=== PATIENT | male | born 1950 | race Caucasian/White ===

== ENCOUNTER 2019-08-05 07:24 | Inpatient (IN) ==
--- NOTE | 2019-07-10 14:19 | PAT Medication Instructions ---
Medication Instructions Date of Service July 10, 2019 Home Medications Medications atorvastatin 80 mg PO QAM metoprolol succinate 12.5 mg PO QAM paroxetine HCl 20 mg PO QAM aspirin 325 mg PO QAM ASK your prescriber and surgeon aspirin 325 mg PO QAM Take morning of surgery With a small sip of water, OTHERWISE NOTHING TO EAT OR DRINK AFTER MIDNIGHT: atorvastatin 80 mg PO QAM metoprolol succinate 12.5 mg PO QAM paroxetine HCl 20 mg PO QAM Other Notes If you have any questions please call us at [phone] or [phone] or [phone] or [phone]
--- NOTE | 2019-07-11 10:56 | Anesthesiology Consultation ---
Date of Service July 11, 2019 Assessment & Plan (1) Encounter for pre-operative examination: PCP Clearance 07/16/19 = "recent A1c level 6.9% ... We discussed diagnosis of type 2 diabetes ...[patient] plans to improve diet...f/u in 2 months...patient is cleared for surgery pending cardiac clearance." Cardiology clearance 07/25/19 = "blood pressure notably elevated on preadmission testing as well as when evaluated by PCP and here today. This is likely in part associated with the interim weight gain, up 18 pounds from last evaluation in this office. Patient quires additional blood pressure control prior to surgery. Options of management discussed with the patient as well as supervising cad application support specialist. He has had past issues with fluid retention while on amlodipine, hyperkalemia with past use of lisinopril; I am hesitant to add a thiazide diuretic preoperatively. At this time is felt that it would be best to add amlodipine 5 mg/day for additional blood pressure control, utilize NSAID medication likely only for short period of time. Following surgery, would consider alternative such as HCTZ then retrial of lisinopril. Resting echoca rdiography requested to assess LV systolic function and current valvular status, testing to be done prior to surgery... I have also been asked by preadmission testing to comment on the patient's atherosclerotic plaque in the proximal descending aorta; I do not believe this requires further evaluation/intervention prior to elective knee surgery." Echo 07/25/19 The examination is adequate to evaluate the referral indication. There is sinus bradycardia during examination. LV cavity size is normal. The LV wall thickness is moderately increased (concentric). The basal posterior wall is hypokinetic. The base and mid inferior wall is hypokinetic. The regional left ventricular wall motion is otherwise normal. EF 55 to 59%. Grade 1 diastolic dysfunction of left ventricle. There is an aortic valve bioprosthetic present. AV prosthesis leaflets appear mobile. Valve gradients are appropriate for the size and structure and a reduced comparison to prior examination. Significant AV prosthesis regurgitation is absent. The aortic root and proximal ascending aorta are normal sized. Cardio 07/25: "Echo looks good. Patient okay for surgery once blood pressure is adequately controlled." BP Recheck 07/31/19 = BP 154/75 Chart Review Chart Review: Acceptable Risk for Surgery and Patient seen in Pre Admission Testing Teaching & Discussion Instructed NPO after midnight before surgery, except medications with 15 cc of water. Medication instructions provided according to the PAT guidelines. History Surgery Operation Date: 08/05/19 09:55 Proposed Procedures p Left Knee Revision Patella with Possible Tabecular Knee - Chuck Enamorado DO Height/Weight Height: 5 ft 7 in Weight: 118.8 kg Allergies Allergy/AdvReac Type Severity Reaction Status Date / Time No Known Drug Allergies Allergy Unknown NONE Verified 07/09/19 15:35 Medications Home Medications Medication Instructions Recorded Confirmed Last Taken atorvastatin 80 mg PO QAM 07/12/18 07/09/19 Unknown metoprolol succinate 12.5 mg PO QAM 07/12/18 07/09/19 Unknown paroxetine HCl 20 mg PO QAM 07/12/18 07/09/19 Unknown aspirin 325 mg PO QAM 07/09/19 07/09/19 Unknown Past Medical History Medical History CAD (coronary artery disease) s/p inferior wall OR; PCI to the proximal and distal RCA in 2001 SHAQUILLE (generalized anxiety disorder) GERD (gastroesophageal reflux disease) hx - no problems currently Heart disease (Resolved) History of aortic valve stenosis s/p AVR with bioprosthetic valve 06/2018 HLD (hyperlipidemia) Hypertension (Chronic) OR (myocardial infarction) (Chronic) 2001 Osteoarthritis Pericardial effusion without cardiac tamponade s/p aortic valve replacement 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 Exercise / Class Metabolic Activity II 4-5 Yardwork/Stairs/Walk up hill (Denies CP or SOB wih 1 FOS, does daily.) Past Family History Family History Father , in 40s Encephalitis Mother Alzheimer disease Other Coronary heart disease No family history of adverse response to anesthesia Past Surgical History Surgical History History of appendectomy History of cardiac cath 2001 with PCI History of cholecystectomy History of colonoscopy History of esophagogastroduodenoscopy (EGD) History of heart artery stent 2001 - [facility] History of tonsillectomy History of total bilateral knee replacement History of vasectomy S/P AVR (aortic valve replacement) 06/24/[place] [facility] [place] Medley bioprosthetic S/P transesophageal echocardiogram (LATOYA) Past Anesthesia History No Hx of Anesthesia Complications and No Family Hx of Anesthesia Complications History of PONV No Hx of PONV and Hx of Motion Sickness Social History Smoking Status: Former smoker tobacco type: cigarettes Smoking cigarettes per day: ~3 ppd Do You Dip or Chew Tobacco: No Smoking End Date: 06/2001 Hx Alcohol Use: Yes Alcohol type: beer alcohol intake frequency: a few times a week Hx Substance Use: No substance use type: does not use Review of Systems Pt denies any recent chest pain, shortness of breath, palpitations, cough, fever or URI. Physical Exam Vital Signs BP: 156/86 (pt to see cardiology for pre op clearance) P: 54bpm SPO2: 96% RA T: 98.3 F R: 16 ENMT Mouth: + dentures (full upper) and + macroglossia; no chipped teeth and no loose teeth Thyromental Distance: > or= 3.5 Finger Breadths (4) Mallampati Class: II Neck + short neck; neck extension not limited Respiratory normal respiratory effort Auscultation: lungs clear to auscultation bilaterally Cardiovascular Rate/Rhythm: regular rhythm and + bradycardic Heart Sounds: + murmur (II/ RSB) Testing Laboratory Results 07/11/19 11:19 07/11/19 11:19 PT 9.8 Seconds (9.0-12.0) 07/11/19 11:19 INR 1.0 (0.9-1.1) 07/11/19 11:19 APTT 25.6 Seconds (21.0-31.0) 07/11/19 11:19 Hemoglobin A1c 6.9 % (4.5-5.6) H 07/11/19 11:19 Urine Color Dark Yellow 07/11/19 11:19 Urine Appearance Clear (Clear) 07/11/19 11:19 Urine pH 7.5 (4.5-7.5) 07/11/19 11:19 Ur Specific [place] 1.026 (1.000-1.030) 07/11/19 11:19 Urine Protein 2+ (Negative) H 07/11/19 11:19 Urine Glucose (UA) Negative (Negative) 07/11/19 11:19 Urine Ketones Negative (Negative) 07/11/19 11:19 Urine Nitrite Negative (Negative) 07/11/19 11:19 Ur Leukocyte Esterase Negative (Negative) 07/11/19 11:19 Urine WBC (Auto) 1-5 /hpf (0-5) 07/11/19 11:19 Urine RBC (Auto) 5-10 /hpf (0-4) H 07/11/19 11:19 U Hyaline Cast (Auto) 0 /lpf (0-5) 07/11/19 11:19 U Epithel Cells (Auto) 5-10 /lpf (0-5) H 07/11/19 11:19 Urine Bacteria (Auto) Negative (Negative) 07/11/19 11:19 Blood Type A Positive 07/11/19 11:19 Antibody Screen NEGATIVE 07/11/19 11:19 07/11/19 11:19 Urine Culture - Final Urine,Clean Catch No growth - less than 1,000 colonies/mL. Electrocardiogram Date: 07/11/19 Findings: + SB @ (54bpm with sinus arrhythmia) Cannot rule out anterior infarct, age undetermined. Cannot rule out inferior infarct. ST elevation, consider inferior injury pattern. Compared with EKG of 07/14/2018, premature atrial complexes are no longer present, [place] interval has decreased, nonspecific T wave abnormality no longer evident in inferior leads, ST elevation is now more evident in inferior leads. *Patient denied any chest pain/pressure, dyspnea or nausea at [facility]. Anterior and inferior infarcts noted on prior EKGs from [facility] (scanned to chart). Chest X-Ray Date: 07/11/19 FINDINGS: Median sternotomy wires intact. Atherosclerosis of the aortic arch. Cardiac silhouette mildly enlarged. Lungs and pleural spaces clear apart from a possible loculated effusion, pleural thickening, or extrapleural fat in the posterior costophrenic sulcus potentially on the left. Degenerative changes of the thoracic spine. Post traumatic deformity of the right clavicle. Upper abdomen normal. IMPRESSION: 1. No acute cardiopulmonary disease. 2. Possible loculated effusion, pleural thickening, or extrapleural fat in the posterior costophrenic sulcus potentially on the left. This may represent sequela of prior effusion from last June. *Reviewed by PCP at clearance appt Echocardiogram Date: 07/13/18 (LATOYA) EF: 60-65% There is a bioprosthetic aortic valve. Bioprosthetic leaflets are thin and move normally in limited views. No evidence of bioprosthetic aortic valve regurgitation. No Cardiac Catheterization Date: 05/30/18 Coronary angiography: Selective injections of the left coronary artery revealed the left main trunk to be widely patent. The left circumflex artery is small and consist principally of the AV groove. The left circumflex artery is patent. There is a large ramus branch from the LAD that supplies most of the lateral myocardium and is widely patent. The LAD continues down around the apex of the heart. The LAD system is widely patent. Selective injections of the right coronary artery reveal it to be hyperdominant with a very large PDA as well as posterior lateral branch supplying a lot of the area usually supplied by the left circumflex artery. There are stented sites within the right coronary artery which are patent. The remainder of the artery is also widely patent. Summary: The patient has aortic stenosis with patent coronary anatomy including the previous stent sites in the right coronary artery. The estimated left ventricular ejection fraction is around 50% with hypokinesis of the inferior and inferior posterior myocardium consistent with previous history of infarct. Recommendations: Surgical review of the data for possible aortic valve replacement. Other Testing Transthoracic echo 10/08/2018 Small loculated pericardial effusion adjacent to the right atrium. Cardiac tamponade is absent. EF is normal at 55 to 59%. The base posterior wall and basal inferior wall are hypokinetic.
--- NOTE | 2019-07-11 11:48 | XRay Report ---
XR chest Pre-admission PA/Lat CLINICAL HISTORY: 68 years-old Male presenting with preoperative assessment. TECHNIQUE: PA and lateral views of the chest were obtained. COMPARISON: 07/12/2018. FINDINGS: Median sternotomy wires intact. Atherosclerosis of the aortic arch. Cardiac silhouette mildly enlarge d. Lungs and pleural spaces clear apart from a possible loculated effusion, pleural thickening, or ex trapleural fat in the posterior costophrenic sulcus potentially on the left. Degenerative changes of the thoracic spine. Post traumatic deformity of the right clavicle. Upper abdomen normal. IMPRESSION: 1. No acute cardiopulmonary disease. 2. Possible loculated effusion, pleural thickening, or extrapleural fat in the posterior costophreni c sulcus potentially on the left. This may represent sequela of prior effusion from last June. ACT 112: Negative or not required by law. Electronically signed by: Benja Daniels M.D. 07/11/2019 11:46 AM
[2019-07-11 12:39] LABS: Basophils # (auto) 0.02 K/uL (0-0.2); Basophils % (auto) 0.3 %; Eosinophils % (auto) 4.1 %; Hematocrit (blood only) 40.9 % (42-52); Hemoglobin 13.6 g/dL (14.0-18.0); Immature Granulocytes # (auto) 0.02 K/uL (0.00-0.02); Immature Granulocytes % (auto) 0.3 %; Lymphocytes # (auto) 1.54 K/uL (1.2-3.4); Lymphocytes % (auto) 20.9 %; Mean Corpuscular Hemoglobin 30.5 pg (25-34); Mean Corpuscular Hgb Conc 33.3 g/dL (32-36); Mean Corpuscular Volume 91.7 fL (80-100); Mean Platelet Volume 10.5 fL (7.4-10.4); Monocytes # (auto) 0.39 K/uL (0.11-0.59); Monocytes % (auto) 5.3 %; Neutrophils # (auto) 5.11 K/uL (1.4-6.5); Neutrophils % (auto) 69.1 %; Platelet Count 195 K/uL (130-400); RDW Coefficient of Variation 13.5 % (11.5-14.5); RDW Standard Deviation 44.7 fL (36.4-46.3); Red Blood Count 4.46 M/uL (4.7-6.1); White Blood Count 7.38 K/uL (4.8-10.8)
[2019-07-11 12:42] LABS: Appearance Urine Clear (Clear); Bacteria Urine Automated Negative (Negative); Bilirubin Urine Negative (Negative); Blood Urine Negative (Negative); Cast Urine Automated 0 /lpf (0-5); Color Urine Dark Yellow; Glucose Urine UA Negative (Negative); Ketones Urine Negative (Negative); Leukocyte Esterase Urine Negative (Negative); Nitrite Urine Negative (Negative); Specific Gravity Urine 1.026 (1.000-1.030); Urobilinogen Urine Negative (Negative); pH Urine 7.5 (4.5-7.5)
[2019-07-11 12:43] LABS: Protein Urine 2+ (Negative)
[2019-07-11 12:44] LABS: Sulfosalicylic Acid Urine Positive (Negative)
[2019-07-11 12:51] LABS: Albumin Level 3.6 gm/dl (3.4-5.0); BUN Creatinine Ratio 19.8 (10-20); Calcium 8.9 mg/dl (8.5-10.1); Est GFR (African American) 95.6; Est GFR (Non-African American) 82.5; Potassium 4.3 mmol/L (3.5-5.1)
[2019-07-11 13:10] LABS: Partial Thromboplastin Ratio 0.9; Partial Thromboplastin Time 25.6 Seconds (21.0-31.0); Prothrombin Time 9.8 Seconds (9.0-12.0)
[2019-07-11 13:13] LABS: Estimated Average Glucose 151 mg/dl; Hemoglobin A1C 6.9 % (4.5-5.6)
--- NOTE | 2019-07-12 06:24 | Electrocardiogram Report ---
Test Reason : Blood Pressure : / mmHG Vent. Rate : 054 BPM Atrial Rate : 054 BPM P-R Int : 196 ms QRS Dur : 116 ms QT Int : 458 ms P-R-T Axes : 024 069 057 degrees QTc Int : 434 ms Sinus bradycardia with sinus arrhythmia Cannot rule out Anterior infarct , age undetermined Cannot rule out Inferior infarct ST elevation, consider inferior injury pattern Abnormal ECG When compared with ECG of 14-JUL-2018 07:06, Premature atrial complexes are no longer Present [place] interval has decreased Nonspecific T wave abnormality no longer evident in Inferior leads ST elevation is now more evident in inferior leads Confirmed by Miles Rhodes ([id number]) on 07/12/2019 6:23:57 AM Referred By: Chuck Enamorado Confirmed By:Miles Rhodes
--- NOTE | 2019-07-15 08:45 | History & Physical Report ---
Date of Service July 15, 2019 date of surgery: 08-05-19 Assessment & Plan (1) Painful total knee replacement, left: Further care discussed with patient and at this point in time has failed conservative measures and would like to proceed with a left knee patellar revision with poss trabecular metal component. Plan on discharge will be home with home health physical therapy. DVT prophalaxis with TEDs, SCDs and will also place on aspirin 81 mg p.o. b.i.d. for a month postop. Patient will have follow up appointment in our office two weeks post op for staple/suture removal and re- evaluation. Patient otherwise has no other questions or concerns. Patient with h/o CAD will need cardiac clearance. History of Present Illness Chief Complaint: left knee pain Primary Care Provider: Gen Mccartney MD Mr Matthews is a 68 year old male who complains of left knee pain, presents for pre-op evaluation prior to Left knee revision patella with possible trabecular metal patella [facility] 08/05/[facility]. he complains of pain and giving out of the left knee. Currently the patient states that the symptoms are moderate- severe. The pain is described as aching, sharp and throbbing. The symptoms are aggravated by ascending stairs, descending stairs, daily activities, driving, first steps while awake, kneeling, movement, repetitive activities, sleeping in any position, squatting, standing, walking and weight bearing. In addition to knee pain he is also experiencing decreased mobility, difficulty bending, difficulty going to sleep, instability, limping, nighttime awakening, pain, stiffness, tenderness and weakness. On 03/01/15 Dr. Keating performed left knee TKA. X-ray shows Loose and displaced patellar component left total knee tibia and femur both in excellent position no loosening noted Allergies Allergy/AdvReac Type Severity Reaction Status Date / Time No Known Drug Allergies Allergy Unknown NONE Verified 07/09/19 15:35 Home Medications Home Medications Medication Instructions Recorded Confirmed Type atorvastatin 80 mg PO QAM 07/12/18 07/09/19 History metoprolol succinate 12.5 mg PO QAM 07/12/18 07/09/19 History paroxetine HCl 20 mg PO QAM 07/12/18 07/09/19 History aspirin 325 mg PO QAM 07/09/19 07/09/19 History Past Med/Surg History Medical History CAD (coronary artery disease) s/p inferior wall [place]; PCI to the proximal and distal RCA in 2001 [place]QU[place] (generalized anxiety disorder) GERD (gastroesophageal reflux disease) hx - no problems currently Heart disease (Resolved) History of aortic valve stenosis s/p AVR with bioprosthetic valve 06/2018 HLD (hyperlipidemia) Hypertension (Chronic) [place] (myocardial infarction) (Chronic) 2001 Osteoarthritis Pericardial effusion without cardiac tamponade s/p aortic valve replacement 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 Surgical History History of appendectomy History of cardiac cath [address] Monreal History of cholecystectomy History of colonoscopy History of esophagogastroduodenoscopy (EGD) History of heart artery stent 2001 - [facility] History of tonsillectomy History of total bilateral knee replacement History of vasectomy S/P AVR (aortic valve replacement) [place] [facility] [place] Med[place] biop[place] S/P transesophageal echocardiogram (LATOYA) Family History Father , in 40s Encephalitis Mother Alzheimer disease Other Coronary heart disease No family history of adverse response to anesthesia Social History Preferred Language: Afghan Communication Ability: Effective Accountant Controller Required: No Beliefs That Will Affect Care: None marital status: Current Living Situation: Spouse Other Information That Helps Us Care for You: No Feels Safe at Home: Yes Safety Concerns: Feels Safe At This Time Smoking Status: Former smoker Tobacco Type: cigarettes ; Cigarettes Per Day: ~3 ppd ; Do You Dip or Chew Tobacco: No ; Smoking End Date: 06/2001 ; Second Hand Exposure: Yes (hx) ; Tobacco Cessation Education Requested by Patient: No Hx Alcohol Use: Yes Alcohol type: beer Alcohol Intake Frequency Comment: socially on weekend 2-3 on sunday nights, 6-12 on sunday night Hx Substance Use: No Review of Systems Review of Systems: All systems reviewed & are unremarkable except as noted in HPI & below Constitutional: no fever, no chills and no sweats Respiratory: no cough and no dyspnea Cardiovascular: no chest pain, no dyspnea and no orthopnea Gastrointestinal: no abdominal pain, no nausea and no vomiting Musculoskeletal: as per Subjective / HPI Physical Exam 2 Physical Exam: Ht: 5ft 7in Wt: 118.8kg BP: 142/72 Pulse: 76 Constitutional: WD/WN, vitals as above no acute distress Respiratory: normal respiratory effort, lungs clear to auscultation no respiratory distress, no labored breathing and does not use accessory muscles Cardiovascular: RRR, no murmur, no edema Gastrointestinal (Abdomen): normal bowel sounds, soft, nontender, no hepatosplenomegaly Musculoskeletal: Left Knee Exam Ambulates with a limp, overall neutral alignment, well healed surgical incision. there is no atrophy warmth or ecchymosis noted, mild effusion, maximum tenderness anterior knee. positive patellar Apprehension , no crepitation with motion, valgus stress Negative, Varus stress Negative, no Extensor lag, Pain with Active range of motion, also passive painful ROM, Range of motion 0/3/115. No pain with active/passive ROM of ankle. Lower Extremity Strength normal. Lower Extremity Neuro-vascular is normal Results & Data Laboratory Results Laboratory Results WBC 7.38 K/uL (4.8-10.8) 07/11/19 11:19 RBC 4.46 M/uL (4.7-6.1) L 07/11/19 11:19 Hgb 13.6 g/dL (14.0-18.0) L 07/11/19 11:19 Hct 40.9 % (42-52) L 07/11/19 11:19 MCV 91.7 fL (80-100) 07/11/19 11:19 MCH 30.5 pg (25-34) 07/11/19 11:19 MCHC 33.3 g/dL (32-36) 07/11/19 11:19 RDW Std Deviation 44.7 fL (36.4-46.3) 07/11/19 11:19 RDW Coeff of Adi 13.5 % (11.5-14.5) 07/11/19 11:19 Plt Count 195 K/uL (130-400) 07/11/19 11:19 MPV 10.5 fL (7.4-10.4) H 07/11/19 11:19 Immature Gran % (Auto) 0.3 % 07/11/19 11:19 Neut % (Auto) 69.1 % 07/11/19 11:19 Lymph % (Auto) 20.9 % 07/11/19 11:19 [place] % (Auto) 5.3 % 07/11/19 11:19 Eos % (Auto) 4.1 % 07/11/19 11:19 Baso % (Auto) 0.3 % 07/11/19 11:19 Immature Gran # (Auto) 0.02 K/uL (0.00-0.02) 07/11/19 11:19 Neut # (Auto) 5.11 K/uL (1.4-6.5) 07/11/19 11:19 Lymph # (Auto) 1.54 K/uL (1.2-3.4) 07/11/19 11:19 [place] # (Auto) 0.39 K/uL (0.11-0.59) 07/11/19 11:19 Eos # (Auto) 0.30 K/uL (0-0.5) 07/11/19 11:19 Baso # (Auto) 0.02 K/uL (0-0.2) 07/11/19 11:19 PT 9.8 Seconds (9.0-12.0) 07/11/19 11:19 INR 1.0 (0.9-1.1) 07/11/19 11:19 APTT 25.6 Seconds (21.0-31.0) 07/11/19 11:19 PTT Ratio 0.9 07/11/19 11:19 Sodium 140 mmol/L (136-145) 07/11/19 11:19 Potassium 4.3 mmol/L (3.5-5.1) 07/11/19 11:19 Chloride 105 mmol/L (98-107) 07/11/19 11:19 Carbon Dioxide 31 mmol/L (21-32) 07/11/19 11:19 Anion Gap 4.0 (3-11) 07/11/19 11:19 BUN 19 mg/dl (7-18) H 07/11/19 11:19 Creatinine 0.95 mg/dl (0.6-1.4) 07/11/19 11:19 Est Cr Clr Drug Dosing 93.0 ml/min 07/11/19 11:19 Est GFR ( Amer) 95.6 07/11/19 11:19 Est GFR (Non-Af Amer) 82.5 07/11/19 11:19 BUN/Creatinine Ratio 19.8 (10-20) 07/11/19 11:19 Glucose 108 mg/dl (70-99) H 07/11/19 11:19 Estimat Average Glucose 151 mg/dl 07/11/19 11:19 Hemoglobin A1c 6.9 % (4.5-5.6) H 07/11/19 11:19 Calcium 8.9 mg/dl (8.5-10.1) 07/11/19 11:19 Albumin 3.6 gm/dl (3.4-5.0) 07/11/19 11:19 Urine Color Dark Yellow 07/11/19 11:19 Urine Appearance Clear (Clear) 07/11/19 11:19 Urine pH 7.5 (4.5-7.5) 07/11/19 11:19 Ur Specific [place] 1.026 (1.000-1.030) 07/11/19 11:19 Urine Protein 2+ (Negative) H 07/11/19 11:19 Urine Glucose (UA) Negative (Negative) 07/11/19 11:19 Urine Ketones Negative (Negative) 07/11/19 11:19 Urine Blood Negative (Negative) 07/11/19 11:19 Urine Nitrite Negative (Negative) 07/11/19 11:19 Urine Bilirubin Negative (Negative) 07/11/19 11:19 Urine Urobilinogen Negative (Negative) 07/11/19 11:19 Ur Leukocyte Esterase Negative (Negative) 07/11/19 11:19 Urine WBC (Auto) 1-5 /hpf (0-5) 07/11/19 11:19 Urine RBC (Auto) 5-10 /hpf (0-4) H 07/11/19 11:19 U Hyaline Cast (Auto) 0 /lpf (0-5) 07/11/19 11:19 U Epithel Cells (Auto) 5-10 /lpf (0-5) H 07/11/19 11:19 Urine Bacteria (Auto) Negative (Negative) 07/11/19 11:19 Blood Type A Positive 07/11/19 11:19 Antibody Screen NEGATIVE 07/11/19 11:19 Diagnostic Findings Left knee X-ray Loose and displaced patellar component left total knee tibia and femur both in excellent position no loosening noted
[~2019-08-05 07:24] MED LIST: ACETAMINOPHEN 500 MG TAB PO SCH; BUPIVACAINE 0.5 % 5 MG/1 ML PF 10ML VIAL ONE; BUPIVACAINE/EPINEPHRINE 0.25% 1:200,000 30 ML VIAL ONE; CEFAZOLIN 2000MG 2,000 MG/15 ML SYR IV SCH; CeleBREX 200 MG CAP PO SCH; FAMOTIDINE 20 MG TAB PO SCH; GABAPENTIN 300 MG CAP PO SCH; LR 500ML BOLUS, THEN 15ML/HR IV SCH; METOCLOPRAMIDE HCL 10 MG TABLET PO SCH; TRANEXAMIC ACID 1,000 MG **IV Intra-op IV SCH; TRANEXAMIC ACID 1,000 MG **IV Pre-op IV SCH; dexAMETHasone 4 MG TAB PO SCH
[2019-08-05] MEDS ORDERED: GLYCOPYRROLATE 0.2 MG/ML VIAL ONE (07:46)
[2019-08-05] MEDS ORDERED: LIDOCAINE HCL 2% 2 ML VIAL/AMP(20MG/ML) INFIL ONE (07:46)
[2019-08-05] MEDS ORDERED: KETAMINE HCL INJ 50 MG/ML 10 ML VIAL ONE (07:46)
[2019-08-05] MEDS ORDERED: MIDAZOLAM HCL 1 MG/ML 2ML VIAL ONE (07:46)
[2019-08-05] MEDS ORDERED: PROPOFOL IV EMULSION 10 MG/ML 20 ML VIAL IV ONE ×2 (07:46→08:41)
[2019-08-05] MEDS ORDERED: ONDANSETRON INJ 2 MG/ML 2 ML VIAL ONE (07:46)
--- NOTE | 2019-08-05 08:42 | History & Physical Bridge Note ---
Date of Service August 05, 2019 History & Physical Bridge Note I have examined the patient, reviewed the History & Physical and in the interval since the performance of the History & Physical I have noted the following changes of clinical significance: no changes noted
[2019-08-05] MEDS ORDERED: ONDANSETRON INJ 2 MG/ML 2 ML VIAL IV PRN ×2 (09:12→13:10)
[2019-08-05] MEDS ORDERED: fentaNYL citrate 100 MCG/2 ML VIAL IV PRN (09:12)
[2019-08-05] MEDS ORDERED: ePHEDrine sulfate 50 MG/ML AMP IV PRN (09:12)
[2019-08-05] MEDS ORDERED: ATROPINE SULFATE 0.1 MG/ML 10ML SYR IV PRN (09:12)
[2019-08-05] MEDS ORDERED: HYDROmorphone INJ 2 MG/ML SYR/VIAL IV PRN (09:12)
[2019-08-05] MEDS ORDERED: BACITRACIN INJ 50,000 UNIT VIAL ONE (09:35)
[2019-08-05] MEDS ORDERED: ePHEDrine sulfate 50 MG/ML SYR ONE (10:38)
--- NOTE | 2019-08-05 11:14 | Operative Report ---
Post Operative Report Pre & Post Diagnosis Operation Date: 08/05/19 09:55 Pre-Op Diagnosis: Painful Total Knee Replacement, Left Post-Op Diagnosis: Painful Total Knee Replacement, Left I identified the patient and participated in the time-out.: Yes Procedure Operation Date: 08/05/19 09:55 Actual Procedures p Left Knee Revision Patella with Poly Exchange of Left Knee(Left) with revision of patella to a size 35 cemented patella and a poly-change to a size 13 poly-- Chuck Enamorado DO Surgeon Chuck Enamorado DO Microbiology Professor MEI Juan Estimated Blood Loss 5 Findings Consistent with Post-Op Diagnosis Patient presents being seen evaluated after previously undergone total knee arthroplasties by Dr. Keating presents to the office with painful left total knee of sudden onset after doing some kneeling the x-rays revealed to be evidence of a free patellar component sitting in the suprapatellar pouch no other evidence of loosening sepsis or other abnormality was noted Specimens Tibial poly-patellar button bone Drains Medium bore Hemovac Anesthesia Type General Regional Complications none Disposition Accompanied Patient To Recovery: No Disposition: Recovery Room Indications Patient presents with a loose patellar component free-floating in the knee joint left knee status post previous total knee arthroplasty and having a traumatic event the above intraoperative findings noted at time of surgery Description of Procedure After incision of general anesthesia with spinal anesthesia the left lower extremity socially prepped draped in sterile fashion surgery type in a standard midline incision made a medial parapatellar incision was made synovectomy was performed the no evidence of infection was noted there was a free patellar component floating in the suprapatellar pouch which was removed the tibial poly- was noted to have laxity to it so for this reason it was removed and upsized to a size thirteen 5 x 6 the wound was irrigated with copious muscle sterile saline solution the patella was recut and a re-cemented with a #35 oval patellar button with excellent cement mantle the wound was irrigated patellar tracking was noted to be excellent medial parapatellar incision closed over medium bore Hemovac with #1 Vicryl subcu was closed 2-0 Vicryl skin was closed with skin clips sterile compressive dressing was placed patient taken recovery in stable condition present MEI Ren was necessary prepping draping retraction wound closure of deep fascia subcu and skin was necessary for the case I attest to the content of the Intraoperative Record and any orders documented therein. Any exceptions are noted below.
--- NOTE | 2019-08-05 12:07 | XRay Report ---
LEFT KNEE 2 VIEWS History: Left total knee arthroplasty. Degenerative arthritis. Postop. FINDINGS: The patient is status post a left total knee arthroplasty. The hardware is intact. No fract ure or dislocation. Surgical drains are in place. IMPRESSION: Left total knee arthroplasty. No evidence for hardware complication. ACT 112: Negative or not required by law. Electronically signed by: Castro Galvez M.D. 08/05/2019 12:06 PM
--- NOTE | 2019-08-05 12:17 | Anesthesiology Progress Note ---
Date of Service August 05, 2019 Anesthesia Post Procedure Vital Signs Vital Signs: Temp Pulse Resp BP BP Pulse Ox 08/05/19 12:10 61 18 114/58 L 94 08/05/19 12:00 62 18 107/55 L 93 08/05/19 11:51 36.4 C L 64 19 94/50 L 99 08/05/19 08:00 36.3 C L 58 L 20 167/87 H 95 Pain Intensity Left Knee: Pain Intensity: 0 Transfer of Care Handoff Completed per policy Notes Mental Status: alert / awake / arousable and participated in evaluation Patient Amnestic to Procedure: Yes Nausea / Vomiting: adequately controlled Pain: adequately controlled Airway Patency, RR, SpO2: stable & adequate BP & HR: stable & adequate Hydration State: stable & adequate Anesthetic Complications: no major complications apparent and Pt Satisfied with anesthetic care
[2019-08-05] MEDS ORDERED: bisacodyL 10 MG SUPP PR PRN (13:10)
[2019-08-05] MEDS ORDERED: METOCLOPRAMIDE HCL INJ 5 MG/ML 2 ML VIAL IV PRN (13:10)
[2019-08-05] MEDS ORDERED: HYDROmorphone INJ 1 MG/ML SYRINGE IV PRN (13:10)
[2019-08-05] MEDS ORDERED: OXYCODONE HCL IR 5 MG TAB (IMMEDIATE RELEASE) PO PRN (13:10)
[2019-08-05] MEDS ORDERED: NALOXONE HCL 0.4 MG/1 ML VIAL/CARP IV PRN (13:10)
[2019-08-05] MEDS ORDERED: MAGNESIUM HYDROXIDE SUSP 30 ML UDC PO PRN (13:10)
[2019-08-05] MEDS ORDERED: SODIUM CHLORIDE 0.9% 1000ML 1,000 ML IV SCH (13:30)
[2019-08-05] MEDS: KETOROLAC TROMETHAMINE 15 MG/ML VIAL IV SCH ×2 (13:53→19:24)
[2019-08-05] MEDS: ACETAMINOPHEN 500 MG TAB PO SCH (16:01)
[2019-08-05] MEDS: CEFAZOLIN 2000MG 2,000 MG/15 ML SYR IV SCH (18:53)
[2019-08-05] MEDS: DOCUSATE SODIUM 100 MG CAP PO SCH (20:29)
[2019-08-05] MEDS ORDERED: SENNA 8.6 MG TAB PO SCH (21:00)
[2019-08-05] MEDS ORDERED: PHARMACY GLYCEMIC MGMT CONSULT PRN (22:25)
[2019-08-05] MEDS ORDERED: LANTUS PER UNIT CHARGE SQ STA (22:48)
[2019-08-05] MEDS ORDERED: GLUCAGON FOR INJ 1 MG VIAL IM PRN (23:00)
[2019-08-05] MEDS ORDERED: CARBOHYDRATES FOR HYPOGLYCEMIA PO PRN (23:00)
[2019-08-05] MEDS ORDERED: GLUCOSE 10 TABS/TUBE PO PRN (23:00)
[2019-08-05] MEDS ORDERED: DEXTROSE 50% 50 ML SYRINGE IV PRN (23:00)
[2019-08-05] MEDS ORDERED: GLUCOSE 40% GEL 15 GM TUBE PO PRN (23:00)
[2019-08-06] MEDS: INSULIN ASPART 100 UNITS/ML 3 ML PEN SC SCH ×2 (01:20→04:10)
[2019-08-06] MEDS: CEFAZOLIN 2000MG 2,000 MG/15 ML SYR IV SCH (02:13)
[2019-08-06] MEDS: KETOROLAC TROMETHAMINE 15 MG/ML VIAL IV SCH ×2 (02:13→09:06)
[2019-08-06] MEDS: ACETAMINOPHEN 500 MG TAB PO SCH (06:01)
[2019-08-06 06:24] LABS: Hematocrit (blood only) 35.5 % (42-52); Hemoglobin 12.1 g/dL (14.0-18.0); Mean Corpuscular Hemoglobin 30.3 pg (25-34); Mean Corpuscular Hgb Conc 34.1 g/dL (32-36); Mean Corpuscular Volume 88.8 fL (80-100); Mean Platelet Volume 10.2 fL (7.4-10.4); Platelet Count 188 K/uL (130-400); RDW Coefficient of Variation 13.3 % (11.5-14.5); RDW Standard Deviation 42.9 fL (36.4-46.3); White Blood Count 14.49 K/uL (4.8-10.8)
[2019-08-06 07:01] LABS: BUN Creatinine Ratio 23.6 (10-20); Calcium 8.5 mg/dl (8.5-10.1); Creatinine Clr Calc Pharmacy 72.8 ml/min; Est GFR (African American) 71.4; Est GFR (Non-African American) 61.6; Potassium 4.3 mmol/L (3.5-5.1)
[2019-08-06] MEDS ORDERED: INSULIN ASPART 100 UNITS/ML 3 ML PEN SC SCH (07:30)
[2019-08-06] MEDS ORDERED: NovoLIN-N (NPH) PER UNIT CHARGE SQ ONE (08:45)
[2019-08-06] MEDS ORDERED: MULTIVITAMIN TAB PO SCH (09:00)
[2019-08-06] MEDS ORDERED: ASPIRIN 325 MG ECTAB PO SCH (09:00)
[2019-08-06] MEDS ORDERED: PARoxetine HCL 20 MG TAB PO SCH (09:00)
[2019-08-06] MEDS ORDERED: ATORVASTATIN 40 MG TAB PO SCH (09:00)
[2019-08-06] MEDS ORDERED: AMLODIPINE BESYLATE 5 MG TAB PO SCH (09:00)
[2019-08-06] MEDS: DOCUSATE SODIUM 100 MG CAP PO SCH (09:03)
--- NOTE | 2019-08-06 09:49 | Orthopedic Progress Note ---
Date of Service August 06, 2019 Assessment & Plan (1) Painful total knee replacement, left: POD #1 s/p left knee patellar component revision and poly exchange pt/ot dvt proph with OTILIO/SCD/ASA plan for d/c home later today Admission and Anticipated Discharge Date Admission Date: August 05, 2019 Subjective POD #1 s/p Left knee poly exchange and patellar component revision Review of Systems Constitutional: no fever, no chills and no sweats Respiratory: no cough and no dyspnea Cardiovascular: no chest pain and no dyspnea Gastrointestinal: no abdominal pain, no nausea and no vomiting Physical Exam Physical Exam: Vital Signs Temp 36.7 C 08/06/19 07:35 Pulse 62 08/06/19 07:35 Resp 18 08/06/19 07:35 BP 152/74 H 08/06/19 07:35 Pulse Ox 95 08/06/19 07:35 Intake & Output 08/05/19 08/06/19 08/06/19 18:59 06:59 18:59 Intake Total 2049 / 4220 2170 / 4220 275 / 275 Output Total 5 / 2555 2550 / 2555 Balance 2045 / 1665 -380 / 1665 275 / 275 Weight 117.934 kg Intake: IV 800 / 1728 928 / 1728 Lr 1,000 ml @ 15 mls/hr IV . 600 / 600 Q24H [facility] Rx#:[id number] Nss 1000ML 1,0 00 ml @ 100 mls/ 928 / 928 hr IV .Q10H [facility] Rx#:[id number] TRANEXAMIC ACI D / 0.7% NACL 1, 200 / 200 000 mg In 100 ml @ 600 mls/hr IV TODAY@0600 [facility] Rx#:[id number] IV Perioperative 1000 / 1000 Oral 250 / 1492 1242 / 1492 275 / 275 Output: Urine 1900 / 1900 Estimated Blood Loss 5 / 5 Drain Output 0 / 650 650 / 650 Left Knee Hemo vac 0 / 650 650 / 650 Other: # Unmeasured Voi ds 1 Constitutional: WD/WN, vitals as above no acute distress Musculoskeletal: Left Leg: NVDI, calf SNT, negative morgan sign. DP palpable, able to wiggle toes/ankle movement without difficulty. dressing clean dry and intact. Results & Data ([facility]) Vital Signs (Past 12 Hours) Vital Signs Temp Pulse Pulse Resp BP Pulse Ox 02/19/20 07:35 36.7 C 62 18 152/74 H 95 08/06/19 07:23 36.7 C 56 L 18 157/76 H 99 08/06/19 04:06 37.2 C 60 16 158/70 H 95 08/05/19 22:51 37.3 C 51 L 16 142/65 H 92 Laboratory Results Laboratory Results WBC 14.49 K/uL (4.8-10.8) H 08/06/19 05:45 RBC 4.00 M/uL (4.7-6.1) L 08/06/19 05:45 Hgb 12.1 g/dL (14.0-18.0) L 08/06/19 05:45 Hct 35.5 % (42-52) L 08/06/19 05:45 MCV 88.8 fL (80-100) 08/06/19 05:45 MCH 30.3 pg (25-34) 08/06/19 05:45 MCHC 34.1 g/dL (32-36) 08/06/19 05:45 RDW Std Deviation 42.9 fL (36.4-46.3) 08/06/19 05:45 RDW Coeff of Adi 13.3 % (11.5-14.5) 08/06/19 05:45 Plt Count 188 K/uL (130-400) 08/06/19 05:45 MPV 10.2 fL (7.4-10.4) 08/06/19 05:45 Immature Gran % (Auto) 0.3 % 07/11/19 11:19 Neut % (Auto) 69.1 % 07/11/19 11:19 Lymph % (Auto) 20.9 % 07/11/19 11:19 [place] % (Auto) 5.3 % 07/11/19 11:19 Eos % (Auto) 4.1 % 07/11/19 11:19 Baso % (Auto) 0.3 % 07/11/19 11:19 Immature Gran # (Auto) 0.02 K/uL (0.00-0.02) 07/11/19 11:19 Neut # (Auto) 5.11 K/uL (1.4-6.5) 07/11/19 11:19 Lymph # (Auto) 1.54 K/uL (1.2-3.4) 07/11/19 11:19 [place] # (Auto) 0.39 K/uL (0.11-0.59) 07/11/19 11:19 Eos # (Auto) 0.30 K/uL (0-0.5) 07/11/19 11:19 Baso # (Auto) 0.02 K/uL (0-0.2) 07/11/19 11:19 PT 9.8 Seconds (9.0-12.0) 07/11/19 11:19 INR 1.0 (0.9-1.1) 07/11/19 11:19 APTT 25.6 Seconds (21.0-31.0) 07/11/19 11:19 PTT Ratio 0.9 07/11/19 11:19 Sodium 135 mmol/L (136-145) L 08/06/19 05:45 Potassium 4.3 mmol/L (3.5-5.1) 08/06/19 05:45 Chloride 103 mmol/L (98-107) 08/06/19 05:45 Carbon Dioxide 25 mmol/L (21-32) 08/06/19 05:45 Anion Gap 7.0 (3-11) 08/06/19 05:45 BUN 29 mg/dl (7-18) H 08/06/19 05:45 Creatinine 1.21 mg/dl (0.6-1.4) 08/06/19 05:45 Est Cr Clr Drug Dosing 72.8 ml/min 08/06/19 05:45 Est GFR ( Amer) 71.4 08/06/19 05:45 Est GFR (Non-Af Amer) 61.6 08/06/19 05:45 BUN/Creatinine Ratio 23.6 (10-20) H 08/06/19 05:45 Glucose 165 mg/dl (70-99) H 08/06/19 05:45 POC Glucose 160 mg/dl (70-99) H 08/06/19 07:58 Estimat Average Glucose 151 mg/dl 07/11/19 11:19 Hemoglobin A1c 6.9 % (4.5-5.6) H 07/11/19 11:19 Calcium 8.5 mg/dl (8.5-10.1) 08/06/19 05:45 Albumin 3.6 gm/dl (3.4-5.0) 07/11/19 11:19 Urine Color Dark Yellow 07/11/19 11:19 Urine Appearance Clear (Clear) 07/11/19 11:19 Urine pH 7.5 (4.5-7.5) 07/11/19 11:19 Ur Specific [place] 1.026 (1.000-1.030) 07/11/19 11:19 Urine Protein 2+ (Negative) H 07/11/19 11:19 Urine Glucose (UA) Negative (Negative) 07/11/19 11:19 Urine Ketones Negative (Negative) 07/11/19 11:19 Urine Blood Negative (Negative) 07/11/19 11:19 Urine Nitrite Negative (Negative) 07/11/19 11:19 Urine Bilirubin Negative (Negative) 07/11/19 11:19 Urine Urobilinogen Negative (Negative) 07/11/19 11:19 Ur Leukocyte Esterase Negative (Negative) 07/11/19 11:19 Urine WBC (Auto) 1-5 /hpf (0-5) 07/11/19 11:19 Urine RBC (Auto) 5-10 /hpf (0-4) H 07/11/19 11:19 U Hyaline Cast (Auto) 0 /lpf (0-5) 07/11/19 11:19 U Epithel Cells (Auto) 5-10 /lpf (0-5) H 07/11/19 11:19 Urine Bacteria (Auto) Negative (Negative) 07/11/19 11:19 Blood Type A Positive 07/11/19 11:19 Antibody Screen NEGATIVE 07/11/19 11:19 Diagnostic Findings LEFT KNEE 2 VIEWS History: Left total knee arthroplasty. Degenerative arthritis. Postop. FINDINGS: The patient is status post a left total knee arthroplasty. The hardware is intact. No fracture or dislocation. Surgical drains are in place. IMPRESSION: Left total knee arthroplasty. No evidence for hardware complication.
--- NOTE | 2019-08-06 09:55 | Discharge Summary ---
Date of Service date of discharge: August 06, 2019 date of admission: 08-05-19 Admission HPI Per Admitting Provider Mr Matthews is a 68 year old male who complains of left knee pain, presents for pre-op evaluation prior to Left knee revision patella with possible trabecular metal patella [facility] 08/05/19. he complains of pain and giving out of the left knee. Currently the patient states that the symptoms are moderate- severe. The pain is described as aching, sharp and throbbing. The symptoms are aggravated by ascending stairs, descending stairs, daily activities, driving, first steps while awake, kneeling, movement, repetitive activities, sleeping in any position, squatting, standing, walking and weight bearing. In addition to knee pain he is also experiencing decreased mobility, difficulty bending, difficulty going to sleep, instability, limping, nighttime awakening, pain, s tiffness, tenderness and weakness. On 03/01/15 Dr. Keating performed left knee TKA. X-ray shows Loose and displaced patellar component left total knee tibia and femur both in excellent position no loosening noted Principal Diagnosis painful left total knee replacement Discharge Exam Laboratory Results WBC 14.49 K/uL (4.8-10.8) H 08/06/19 05:45 RBC 4.00 M/uL (4.7-6.1) L 08/06/19 05:45 Hgb 12.1 g/dL (14.0-18.0) L 08/06/19 05:45 Hct 35.5 % (42-52) L 08/06/19 05:45 MCV 88.8 fL (80-100) 08/06/19 05:45 MCH 30.3 pg (25-34) 08/06/19 05:45 MCHC 34.1 g/dL (32-36) 08/06/19 05:45 RDW Std Deviation 42.9 fL (36.4-46.3) 08/06/19 05:45 RDW Coeff of Adi 13.3 % (11.5-14.5) 08/06/19 05:45 Plt Count 188 K/uL (130-400) 08/06/19 05:45 MPV 10.2 fL (7.4-10.4) 08/06/19 05:45 Immature Gran % (Auto) 0.3 % 07/11/19 11:19 Neut % (Auto) 69.1 % 07/11/19 11:19 Lymph % (Auto) 20.9 % 07/11/19 11:19 [place] % (Auto) 5.3 % 07/11/19 11:19 Eos % (Auto) 4.1 % 07/11/19 11:19 Baso % (Auto) 0.3 % 07/11/19 11:19 Immature Gran # (Auto) 0.02 K/uL (0.00-0.02) 07/11/19 11:19 Neut # (Auto) 5.11 K/uL (1.4-6.5) 07/11/19 11:19 Lymph # (Auto) 1.54 K/uL (1.2-3.4) 07/11/19 11:19 [place] # (Auto) 0.39 K/uL (0.11-0.59) 07/11/19 11:19 Eos # (Auto) 0.30 K/uL (0-0.5) 07/11/19 11:19 Baso # (Auto) 0.02 K/uL (0-0.2) 07/11/19 11:19 PT 9.8 Seconds (9.0-12.0) 07/11/19 11:19 INR 1.0 (0.9-1.1) 07/11/19 11:19 APTT 25.6 Seconds (21.0-31.0) 07/11/19 11:19 PTT Ratio 0.9 07/11/19 11:19 Sodium 135 mmol/L (136-145) L 08/06/19 05:45 Potassium 4.3 mmol/L (3.5-5.1) 08/06/19 05:45 Chloride 103 mmol/L (98-107) 08/06/19 05:45 Carbon Dioxide 25 mmol/L (21-32) 08/06/19 05:45 Anion Gap 7.0 (3-11) 08/06/19 05:45 BUN 29 mg/dl (7-18) H 08/06/19 05:45 Creatinine 1.21 mg/dl (0.6-1.4) 08/06/19 05:45 Est Cr Clr Drug Dosing 72.8 ml/min 08/06/19 05:45 Est GFR ( Amer) 71.4 08/06/19 05:45 Est GFR (Non-Af Amer) 61.6 08/06/19 05:45 BUN/Creatinine Ratio 23.6 (10-20) H 08/06/19 05:45 Glucose 165 mg/dl (70-99) H 08/06/19 05:45 POC Glucose 160 mg/dl (70-99) H 08/06/19 07:58 Estimat Average Glucose 151 mg/dl 07/11/19 11:19 Hemoglobin A1c 6.9 % (4.5-5.6) H 07/11/19 11:19 Calcium 8.5 mg/dl (8.5-10.1) 08/06/19 05:45 Albumin 3.6 gm/dl (3.4-5.0) 07/11/19 11:19 Urine Color Dark Yellow 07/11/19 11:19 Urine Appearance Clear (Clear) 07/11/19 11:19 Urine pH 7.5 (4.5-7.5) 07/11/19 11:19 Ur Specific [place] 1.026 (1.000-1.030) 07/11/19 11:19 Urine Protein 2+ (Negative) H 07/11/19 11:19 Urine Glucose (UA) Negative (Negative) 07/11/19 11:19 Urine Ketones Negative (Negative) 07/11/19 11:19 Urine Blood Negative (Negative) 07/11/19 11:19 Urine Nitrite Negative (Negative) 07/11/19 11:19 Urine Bilirubin Negative (Negative) 07/11/19 11:19 Urine Urobilinogen Negative (Negative) 07/11/19 11:19 Ur Leukocyte Esterase Negative (Negative) 07/11/19 11:19 Urine WBC (Auto) 1-5 /hpf (0-5) 07/11/19 11:19 Urine RBC (Auto) 5-10 /hpf (0-4) H 07/11/19 11:19 U Hyaline Cast (Auto) 0 /lpf (0-5) 07/11/19 11:19 U Epithel Cells (Auto) 5-10 /lpf (0-5) H 07/11/19 11:19 Urine Bacteria (Auto) Negative (Negative) 07/11/19 11:19 Blood Type A Positive 07/11/19 11:19 Antibody Screen NEGATIVE 07/11/19 11:19 Vital Signs Temp 36.7 C 08/06/19 07:35 Pulse 62 08/06/19 07:35 Resp 18 08/06/19 07:35 BP 152/74 H 08/06/19 07:35 Pulse Ox 95 08/06/19 07:35 Intake & Output 08/05/19 08/06/19 08/06/19 18:59 06:59 18:59 Intake Total 2049 / 0 2170 / 4220 275 / 275 Output Total 5 2555 2550 / 2555 Balance 2045 / 1665 -380 / 1665 275 / 275 Weight 117.934 kg Intake: IV 800 / 1728 928 / 1728 Lr 1,000 ml @ 15 mls/hr IV . 600 / 600 Q24H [facility] Rx#:[id number] Nss 1000ML 1,000 ml @ 100 mls/ 928 / 928 hr IV .Q10H [facility] Rx#:[id number] TRANEXAMIC ACID / 0.7% NACL 1, 200 / 200 000 mg In 100 ml @ 600 mls/hr IV TODAY@0600 [facility] Rx#:[id number] IV Perioperative 1000 / 1000 Oral 250 / 1492 1242 / 1492 275 / 275 Output: Urine 1900 / 1900 Estimated Blood Loss 5 / 5 Drain Output 0 / 650 650 / 650 Left Knee Hemovac 0 / 650 650 / 650 Other: # Unmeasured Voids 1 Constitutional WD/WN, vitals as above no acute distress Musculoskeletal Left knee: NVDI, calf SNT, negative morgan sign. DP palpable, able to wiggle toes/ankle movement without difficulty. dressing clean dry and intact. expected post-operative bruising noted. Discharge Data Allergies Allergy/AdvReac Type Severity Reaction Status Date / Time No Known Drug Allergies Allergy Unknown NONE Verified 08/05/19 08:10 Consultations 08/05/19 13:10 Consult Case Management - Discharge Planning Routine Procedures Performed Operation Date: 08/05/19 09:55 Actual Procedures p Left Knee Revision Patella with Poly Exchange of Left Knee(Left) - Chuck Enamorado DO Ordered Studies 08/05/19 05:00 US - OR guided needle placemen Routine Hospital Course (1) Painful total knee replacement, left: POD #1 s/p left knee patellar component revision and poly exchange pt/ot dvt proph with OTILIO/SCD/ASA plan for d/c home later today Total Time Total Time Spent Total Time Spent (In Minutes): 20 Total Time Includes: Examination of the Patient, Discharge Planning and Medication Reconciliation Discharge Plan Discharge Items Patient Disposition: Home - Self-Care Reason For Visit: Presence of Right Artificial Knee Joint, Presence Discharge Diagnosis: left knee poly exchange and patella revision Condition on Discharge: Good Activity: Per Instructions section Lifting: Wait until after follow-up appointment Weightbearing: Full weightbearing Non-emergency contact: Surgeon Call non-emergency contact if: you have any medication questions, your temperature is above 101, your wound has increased redness, your wound has increased drainage and your wound pain has increased Follow-up/Referrals: Gen Mccartney MD [Primary Care Provider] - Diet: Regular Addtl Attending Provider Instructions: ACTIVITY RECOMMENDATIONS: SELF CARE INSTRUCTIONS AFTER POLY EXCHANGE AND PATELLA REVISION A. You may need to continue a physical therapy program after discharge from the hospital. There are several options available to you. Your doctor will assist you in selecting the best one for you. 1. An out-patient facility 2 to 3 times a week for therapy or home therapy. 2. Continue working on all exercises taught to you in the hospital. Your goals should be to increase bending of your knee to 90 degrees and beyond and to fully straighten your knee. B. You may progress at your own pace from walking with a walker or crutches to a cane; then to no assistive devices. C. Make walking a part of your daily routine. Be up as much as comfortable with rest periods throughout the day. Rest with leg elevation is very important. Use the ice wrap frequently for the first 3-4 weeks. D. There are no restrictions on activities. You may ride in a car, shop, participate in crane service technician and all social activities. E. Wear the long elastic stockings (OTILIO hose) 20 hours a day for 2 weeks after surgery. They can be removed several times a day for laundering and for a bath. F. You may shower, no tub baths until cleared by your doctor. SPECIAL CARE INSTRUCTIONS: VERY IMPORTANT TO READ AND REVIEW A. There are a few signs you need to watch for after you are home. Call [facility] if you notice any of the followin. Increased severe knee pain. Some pain is expected especially when you exercise. 2. Increased swelling in your leg or knee; pain or swelling of the calf muscle in either lower leg. 3. Any fluid drainage from the incision. 4. Shortness of breath or chest pain. B. Please call [facility] at if you have any concerns or questions about your operation or recovery. The doctor or his nurse will return your call promptly. C. You must take antibiotics before dental work, bladder, bowel or other surgery. Your doctor will provide you with a permanent care to carry describing this precaution. IMPORTANT: * REMEMBER YOUR NORMAL HOME DOSE OF ASPIRIN. * HIGH RISK PATIENTS MAY BE PRESCRIBED A STRONGER BLOOD THINNER. THIS WILL BE PROVIDED AT DISCHARGE. * CALL IF INCREASED PAIN, REDNESS, DRAINAGE OR FEVER GREATER THAT 101. * WEAR OTILIO HOSE 20 HOURS PER DAY FOR 2 WEEKS. * DERMABOND Prineo- This is a mesh tape dressing that is covered with glue. It should remain in place until the incision is properly healed, usually 10-14 days. This dressing is designed to naturally slough off. You may trim the excess mesh tape as it peels off. Incision may be briefly wet in a shower. Dry immediately by blotting with a clean, dry towel. Do not bath or swim until instructed by your doctor. Do not scratch, rub, or pick at the dressing. Do not apply any topical ointments or lotions until dressing is completely removed and/or instructed by your doctor. There may be a small piece of suture material at one end of your incision. Do not pull or trim this. If it is bothersome or catching on clothing, you may cover it with a band-aid. IF INCISION IS LEAKING THROUGH DRESSING, CALL THE OFFICE . FOLLOW UP VISIT: If appointment is not already scheduled: Please call [facility] to make a follow-up appointment for 2 weeks after your surgery at . Pending Studies at Discharge: No Stand-Alone Forms: My Upplication, Smoking Cessation Medications and DC Order Prescriptions: New celecoxib [Celebrex] 200 mg Capsule 200 mg PO BID 30 Days Qty: 60 RF: 0 acetaminophen 500 mg Tablet 1,000 mg PO Q8 14 Days Qty: 84 RF: 0 oxycodone 5 mg Tablet 5 - 10 mg PO Q6H PRN (Reason: pain) Qty: 30 RF: 0 docusate sodium 100 mg Capsule 100 mg PO BID 10 Days Qty: 20 RF: 0 cefadroxil 500 mg capsule 500 mg PO BID 7 Days Qty: 14 RF: 0 Continued atorvastatin 80 mg Tablet 80 mg PO QAM RF: 0 paroxetine HCl 20 mg Tablet 20 mg PO QAM RF: 0 aspirin 325 mg Tablet 325 mg PO QAM RF: 0 amlodipine [Norvasc] 5 mg Tablet 5 mg PO DAILY RF: 0 Discharge Orders: Discharge Order (Routine); Ordered 08/06/19 Ordered By: Xu Aguilar/Other Patient Handouts: Diabetes Type 2 Coping, Diabetes Healthy Meals, Diabetes Meal Planning, A1C Admission Data Admit Date/Time: 08/05/19 11:53 Attending Provider: Chuck Enamorado Admit Provider: Chuck Enamorado Primary Care Provider: Gen Mccartney Other Providers: Xu Devries
[2019-08-06] MEDS ORDERED: CeleBREX 200 MG CAP PO SCH (21:00)
--- NOTE | 2019-08-08 11:30 | Coding Query ---
BMI To promote full compliance with coding requirements relating to patient care, physician participation is requested in all cases of documentation lead uncertainty. Please assist us with the question(s) below: Please place an X within the parenthesis (x). If other, please document: BMI 40.7 was documented in this record for this patient. If the BMI is significant, please check the box that provides a more specific associated diagnosis: ( x) Overweight/Obese ( ) Obesity ( ) Morbid obesity ( ) Obesity Hypoventilation Syndrome (OHS) ( ) [place]athy weight, not significant ( ) Underweight/Thin ( ) Other, please specify Thank you Kaylie PETERSON
== END 2019-08-06 12:25 | disposition home or self-care (01) | DRG 467 ==
LOC: ASU 07:24 → 3E 11:53